=== PATIENT | female | born 1960 | race Caucasian/White ===

== ENCOUNTER 2019-07-21 08:15 | Day surgery (SDC) | payer BC ==
[~2019-07-21] VITALS: Ht 172.7 cm; Wt 74.4 kg
[~2019-07-21 08:15] MED LIST: ACYC-114 PO; ALBU8.5H5 INH; ALPR0.5T6 PO; AMLO-150 PO; ASCO100019 PO; B CO1TAB14 PO; CALC-570 PO; CARI350T14 PO; ESTR10TA PO; ESTR10TA VG; ESTR1TAB15 PO; ESTR1TAB99 PO; FLUT1DIS IH; FLUT9.9S NAS; FLUT9.9S NS; GABA600T7 PO; HYDR-3245 PO; HYDR-36 PO; HYDROCHLOROTH12.5 MG PO; LIDO20SO PO; MAGN400T9 PO; MELO15TA24 PO; MOME17SP NAS; MULT-642 PO; NAPR500T8 PO; OLME40TA12 PO; OMEG1CAP39 PO; OXYB5TAB10 PO; PARO7.5C2 PO; PRAS1TAB2 PO; PRAS1TAB3 PO; Prednisone PO; TRAZ-137 PO; UBID100C24 PO; astelin nasal spray NS; vitamin b12 INJ
[2019-07-21] MEDS ORDERED: MIDAZOLAM 1 MG/ML, 2ML ONE (08:49)
[2019-07-21] MEDS ORDERED: FENTANYL PF 100 MCG/2ML ONE ×2 (08:49→12:29)
[2019-07-21 09:04] VITALS: BP 124/81
[2019-07-21] MEDS ORDERED: LACTATED RINGERS 1,000 ML IV SCH (09:08)
[2019-07-21] MEDS ORDERED: LIDOCAINE 1%, 20ML ONE (09:10)
[2019-07-21] MEDS ORDERED: BUPIVACAINE/PF 0.5% ONE (09:10)
[2019-07-21] MEDS ORDERED: ACETAMINOPHEN 500 MG TABLET PO ONE (09:30)
[2019-07-21] MEDS ORDERED: FENTANYL PF 100 MCG/2ML IV PRN (10:30)
[2019-07-21] MEDS ORDERED: LORazepam 2 MG/ML, 1ML IVPush PRN (10:30)
[2019-07-21] MEDS ORDERED: HYDROmorphone 2 MG/ML, 1ML IVPush PRN (10:30)
[2019-07-21] MEDS ORDERED: PROMETHAZINE 25 MG SUPP PR PRN (10:30)
[2019-07-21] MEDS ORDERED: ONDANSETRON ODT 8 MG PO PRN (10:30)
[2019-07-21] MEDS ORDERED: OXYcodone 5 MG/5 ML ORAL.SOL UDC PO PRN (10:30)
[2019-07-21] MEDS ORDERED: ONDANSETRON 2MG/ML, 2ML IV PRN (10:30)
[2019-07-21] MEDS ORDERED: PROMETHAZINE 25 MG/ML, 1ML IV PRN (10:30)
[2019-07-21] MEDS ORDERED: PROPOFOL 10 MG/ML, 20ML ONE (11:12)
[2019-07-21] MEDS ORDERED: DEXAMETHASONE 4 MG/ML, 1ML ONE (11:12)
[2019-07-21] MEDS ORDERED: ONDANSETRON 2MG/ML, 2ML ONE (11:12)
[2019-07-21] MEDS ORDERED: CEFAZOLIN 1,000 MG ONE (11:12)
[2019-07-21] MEDS ORDERED: OXYcodone 5 MG/5 ML ORAL.SOL UDC ONE (12:29)
== END 2019-07-21 14:30 | disposition home or self-care (01) ==
LOC: OUT 08:15
PROVIDERS: ATTEND Orthopaedic Surgery
DX: T84.84XA Pain due to internal orthopedic prosthetic devices, implants and grafts, initial encounter (principal); M24.672 Ankylosis, left ankle; M65.872 Other synovitis and tenosynovitis, left ankle and foot; M24.272 Disorder of ligament, left ankle; I10 Essential (primary) hypertension; M19.90 Unspecified osteoarthritis, unspecified site; J45.909 Unspecified asthma, uncomplicated; G47.33 Obstructive sleep apnea (adult) (pediatric); Z79.891 Long term (current) use of opiate analgesic; Z79.899 Other long term (current) drug therapy; Z87.891 Personal history of nicotine dependence; Z88.8 Allergy status to other drugs, medicaments and biological substances; Z91.040 Latex allergy status; Z99.81 Dependence on supplemental oxygen; Z82.61 Family history of arthritis; Z82.49 Family history of ischemic heart disease and other diseases of the circulatory system; Y83.8 Other surgical procedures as the cause of abnormal reaction of the patient, or of later complication, without mention of misadventure at the time of the procedure
CPT/HCPCS: 20680; 27698; 29898; 93005; C1713; J0690; J1100; J2250; J2405; J2704; J3010; J7120